=== PATIENT | female | born 1965 | race Caucasian/White ===

== ENCOUNTER 2018-04-09 22:23 | Inpatient (IN) | payer BC, OTHER ==
[~2018-04-09] VITALS: Ht 162.6 cm; Wt 68.2 kg
[2018-04-09 22:23] VITALS: BP_SYST 103
[2018-04-09 23:24] LABS: CALCIUM 9.3 mg/dL (8.4-11.0); CREATININE 1.05 mg/dL (0.55-1.30); POTASSIUM 3.3 mmol/L (3.5-5.1)
[2018-04-09 23:28] LABS: PROTHROMBIN TIME 10.6 SECS (9.5-12.5)
[2018-04-09 23:29] LABS: ALBUMIN 3.6 g/dL (3.4-4.8); TOTAL BILIRUBIN 0.6 mg/dL (0.0-1.0)
[2018-04-09 23:48] LABS: BASOPHILS # (AUTO) 0.1 K/uL (0.0-0.2); BASOPHILS % (AUTO) 1.7 % (0.0-2.0); EOSINOPHILS # (AUTO) 0.2 K/uL (0.0-0.4); EOSINOPHILS % (AUTO) 2.9 % (0.0-4.0); HEMATOCRIT 38.2 % (36-48); HEMOGLOBIN 12.9 g/dL (12.0-16.0); LYMPHOCYTES # (AUTO) 3.1 K/uL (1.0-5.5); MEAN CORPUSCULAR HEMOGLOBIN 31 pg (27-31); MEAN CORPUSCULAR HGB CONC 34 % (32-36); MEAN CORPUSCULAR VOLUME 91 fL (79.0-98.0); MONOCYTES # (AUTO) 0.3 K/uL (0.0-1.0); MONOCYTES % (AUTO) 4.2 % (1.7-9.3); NEUTROPHILS # (AUTO) 2.4 K/uL (1.8-7.7); PLATELET COUNT (AUTO) 227 K/uL (130-430); RED BLOOD CELL COUNT(AUTO) 4.18 MIL/uL (4.2-6.2); RED CELL DISTRIBUTION WIDTH 11.6 % (9.0-15.0); WHITE BLOOD COUNT (AUTO) 6.1 K/uL (4.8-10.8)
[2018-04-10] MEDS ORDERED: NACL 0.9% 1,000 ML IV ONE (00:15)
[2018-04-10 00:42] LABS: NEUTROPHILS % (AUTO) 39.2 % (40.0-70.0)
[2018-04-10] MEDS ORDERED: POTASSIUM CHLORIDE 10 MEQ TAB.PRT.SR PO ONE (01:15)
[2018-04-10 02:10] VITALS: BP_SYST 129
[2018-04-10 08:00] VITALS: BP_SYST 129
[2018-04-10] MEDS ORDERED: ASPIRIN 325 MG TABLET PO ONE (09:45)
[2018-04-10 12:37] VITALS: BP_SYST 130
[2018-04-10 13:40] VITALS: BP_SYST 129
[2018-04-11] MEDS ORDERED: ASPIRIN 325 MG TABLET PO SCH (09:00)
== END 2018-04-10 14:07 | disposition home or self-care (01) | DRG 313 ==
LOC: SED 22:23 → STU 04-10 01:47
PROVIDERS: ADMIT Internal Medicine Hospice and Palliative Medicine; ATTEND Internal Medicine Hospice and Palliative Medicine
DX: R07.9 Chest pain, unspecified (principal); R00.1 Bradycardia, unspecified; E87.6 Hypokalemia; I95.89 Other hypotension; E78.5 Hyperlipidemia, unspecified; R10.13 Epigastric pain; K30 Functional dyspepsia
CPT/HCPCS: 36415; 71045; 80053; 82550-TC; 83690-TC; 84484; 85025; 85610-TC; 85730-TC; 93005; 93306; 96360; 99285; J7040